=== PATIENT | female | born 1960 | race African-American/Black ===

== ENCOUNTER 2018-02-23 10:13 | Emergency (ER) | payer MEDICAID ==
[~2018-02-23] VITALS: Ht 172.7 cm; Wt 77.3 kg
[2018-02-23] MEDS ORDERED: GABA-531 PO (10:20)
[2018-02-23] MEDS ORDERED: KETOROLAC TROMETHAMINE 10 MG TABLET PO ONE (10:45)
[2018-02-23 11:47] VITALS: BP 131/85
== END 2018-02-23 13:26 | disposition home or self-care (01) ==
LOC: EMS 10:14
DX: M25.421 Effusion, right elbow (principal); M13.821 Other specified arthritis, right elbow; M54.6 Pain in thoracic spine; M54.2 Cervicalgia; F17.210 Nicotine dependence, cigarettes, uncomplicated; F12.90 Cannabis use, unspecified, uncomplicated; Z91.041 Radiographic dye allergy status
CPT/HCPCS: 99284

== ENCOUNTER 2018-04-05 10:47 | Emergency (ER) | payer MEDICAID ==
[~2018-04-05] VITALS: Ht 172.7 cm; Wt 70.9 kg
[~2018-04-05 10:47] MED LIST: GABA-531 PO
[2018-04-05] MEDS ORDERED: NAPR-1024 PO (10:51)
[2018-04-05] MEDS ORDERED: KETOROLAC TROMETHAMINE 10 MG TABLET PO ONE (14:00)
[2018-04-05 14:37] VITALS: BP 157/89
== END 2018-04-05 14:51 | disposition home or self-care (01) ==
LOC: EMS 10:47
DX: G56.01 Carpal tunnel syndrome, right upper limb (principal); F12.90 Cannabis use, unspecified, uncomplicated; F17.210 Nicotine dependence, cigarettes, uncomplicated; Z91.041 Radiographic dye allergy status
CPT/HCPCS: 99283

== ENCOUNTER 2018-09-14 23:11 | Emergency (ER) | payer MEDICAID, OTHER ==
[~2018-09-14] VITALS: Ht 172.7 cm; Wt 66.8 kg
[~2018-09-14 23:11] MED LIST changes: +NAPR-1024 PO
[2018-09-14 23:27] LABS: BASOPHILS % (AUTO) 1.3 % (0.0-2.0); HEMOGLOBIN 12.1 g/dL (12.0-16.0); LYMPHOCYTES # (AUTO) 7.8 K/uL (1.0-4.8); LYMPHOCYTES % (AUTO) 45.8 % (22.0-44.0); MEAN CORPUSCULAR HEMOGLOBIN 31.9 pg (26.0-34.0); MEAN CORPUSCULAR HGB CONC 33.7 G/dL (31.0-37.0); MEAN CORPUSCULAR VOLUME 95 fL (80-100); MONOCYTES # (AUTO) 1.8 K/uL (0.1-1.0); MONOCYTES % (AUTO) 10.8 % (2.0-9.0); NEUTROPHILS % (AUTO) 41.1 % (40.0-70.0); PLATELET COUNT (AUTO) 317 K/uL (150-450); RED CELL DISTRIBUTION WIDTH 13.8 % (11.5-14.5)
[2018-09-14] MEDS ORDERED: LORazepam 2 MG/ML VIAL IVP ONE (23:30)
[2018-09-14] MEDS ORDERED: KETOROLAC TROMETHAMINE 30 MG/ML VIAL IVP ONE (23:30)
[2018-09-14] MEDS ORDERED: METOPROLOL TARTRATE 5 MG/5 ML VIAL IVP ONE (23:30)
[2018-09-14 23:36] LABS: ANION GAP 17 mmol/L (8-16); CALCIUM, TOTAL 9.8 mg/dL (8.8-10.5); CARBON DIOXIDE 24 mmol/L (22-29); CHLORIDE 97 mmol/L (98-107); CREATININE 1.07 mg/dL (0.60-1.30); GLOMERULAR FILTR. RATE CALC > 60 mL/min (>60); GLUCOSE,RANDOM 122 mg/dL (70-110); POTASSIUM 3.5 mmol/L (3.5-5.1); SODIUM SERUM 138 mmol/L (136-145); UREA NITROGEN, BLOOD 14 mg/dL (7-18)
[2018-09-14 23:39] LABS: PROTHROMBIN TIME 10.7 SEC (9.4-11.6)
[2018-09-14 23:42] LABS: ALANINE AMINOTRANSFERASE 76 U/L (12-78); ALBUMIN 3.8 g/dL (3.4-5.0); ALKALINE PHOSPHATASE 359 U/L (46-116); ASPARTATE AMINOTRANSFERASE 64 U/L (15-37); BILIRUBIN,TOTAL 0.3 mg/dL (0.1-1.0); CREATINE KINASE, TOTAL ONLY 52 U/L (26-192)
[2018-09-14 23:48] LABS: B-TYPE NATRIURETIC PEPTIDE 26 pg/mL (0-100)
[2018-09-15 00:26] LABS: APPEARANCE,URINE CLEAR (CLEAR); BILIRUBIN,URINE NEGATIVE (NEGATIVE); GLUCOSE, URINE (UA) NEGATIVE (NEGATIVE); KETONES,URINE NEGATIVE (NEGATIVE); LEUKOCYTE ESTERASE ,URINE NEGATIVE (NEGATIVE); NITRATE,URINE NEGATIVE (NEGATIVE); OCCULT BLOOD,URINE NEGATIVE (NEGATIVE); PH,URINE 6.5 (5.0-8.0); PROTEIN,URINE NEGATIVE (NEGATIVE); UROBILINOGEN,URINE 0.2 mg/dL (<=1.0)
[2018-09-15 00:32] LABS: AMPHET/METH SCREEN,URINE NEGATIVE (NEGATIVE); BARBITURATE SCREEN, URINE NEGATIVE (NEGATIVE); BENZODIAZEPINES SCREEN,URINE NEGATIVE (NEGATIVE); CANNABINOID SCREEN,URINE NEGATIVE (NEGATIVE); COCAINE SCREEN,URINE NEGATIVE (NEGATIVE); METHADONE SCREEN, URINE NEGATIVE (NEGATIVE); OPIATE SCREEN,URINE NEGATIVE (NEGATIVE)
[2018-09-15 00:33] LABS: INFLUENZA TYPE A NEGATIVE FOR TYPE A (NEGATIVE); INFLUENZA TYPE B NEGATIVE FOR TYPE B (NEGATIVE)
[2018-09-15 00:34] LABS: PHENCYCLIDINE SCREEN,URINE NEGATIVE (NEGATIVE)
[2018-09-15] MEDS ORDERED: DiphenhydrAMINE HCL 50 MG/ML VIAL IVP ONE (01:00)
[2018-09-15] MEDS ORDERED: ONDANSETRON HCL 4 MG/2 ML VIAL IVP ONE (01:00)
[2018-09-15] MEDS ORDERED: SODIUM CHLORIDE 0.9% 100 ML ONE (01:03)
[2018-09-15] MEDS ORDERED: IOVERSOL 350 MG/ML 150 ML VIAL ONE (01:03)
[2018-09-15] MEDS ORDERED: PB/HYOSCY/ATR/SCOP/LIDO/MAALOX 55 ML BOTTLE PO ONE (02:15)
[2018-09-15 04:15] VITALS: BP 126/76
== END 2018-09-15 05:07 | disposition home or self-care (01) ==
LOC: EMS 23:11
DX: M94.0 Chondrocostal junction syndrome [Tietze] (principal); F10.129 Alcohol abuse with intoxication, unspecified; I10 Essential (primary) hypertension; F17.210 Nicotine dependence, cigarettes, uncomplicated; F12.90 Cannabis use, unspecified, uncomplicated; Z91.041 Radiographic dye allergy status; Z79.899 Other long term (current) drug therapy; Y90.7 Blood alcohol level of 200-239 mg/100 ml
CPT/HCPCS: 36415; 71045; 71260; 74177; 76705; 80053; 80307; 81003; 82550; 83880; 84484; 85025; 85610; 85730; 87804; 93005; 96374; 96375; 99285; G0480; J1200; J1885; J2060; J2405; J3490; J7050; Q9967; 72193; 74160

== ENCOUNTER 2019-02-05 13:39 | Emergency (ER) | payer OTHER ==
[~2019-02-05] VITALS: Ht 172.7 cm; Wt 62.7 kg
[2019-02-05] MEDS ORDERED: FLUT16H NASAL (13:52)
[2019-02-05] MEDS ORDERED: METO25 PO (13:52)
[2019-02-05] MEDS ORDERED: LISI-660 PO (13:52)
[2019-02-05] MEDS ORDERED: OMEP20 PO (13:52)
[2019-02-05] MEDS ORDERED: ATOR20TA86 PO (13:52)
[2019-02-05] MEDS ORDERED: DEXAMETHASONE SOD PHOS 4 MG/ML VIAL IM ONE (14:30)
[2019-02-05 15:53] VITALS: BP 96/64
== END 2019-02-05 16:12 | disposition home or self-care (01) ==
LOC: EMS 13:40
DX: J02.9 Acute pharyngitis, unspecified (principal); I10 Essential (primary) hypertension; F17.210 Nicotine dependence, cigarettes, uncomplicated; F12.90 Cannabis use, unspecified, uncomplicated; Z79.899 Other long term (current) drug therapy; Z91.041 Radiographic dye allergy status
CPT/HCPCS: 70360; 96372; 99283; J1100